=== PATIENT | female | born 1995 | race Caucasian/White ===

== ENCOUNTER → 2019-02-20 | Outpatient (CLI) | payer SELFPAY ==
--- NOTE | 2019-02-20 14:34 | RADIOLOGY REPORT (SQ) ---
EXAM DESCRIPTION: U/S [id number] TRNABD 1GES W/ODOP COMPLETED DATE/TIME: 02/20/2019 2:16 pm REASON FOR STUDY: Z34.81 ENCOUNTER FOR SUPRVSN OF NORMAL , FIRST TRIMESTER Z34.81 ENCOUNTE R FOR SUPRVSN OF NORMAL , FIRST TRIM COMPARISON: None. TECHNIQUE: Transabdominal static and realtime grayscale images acquired of the pelvis. Additional se lected spectral and color Doppler images recorded. All images stored on PACs. bHCG: Not available. CLINICAL DATES: RUDI: 09/18/2019. EGA: 10 weeks 0 days LIMITATIONS: None. FINDINGS: FETUS: Single Living intrauterine . ULTRASOUND EGA: 11 weeks 6 days ULTRASOUND RUDI: 09/05/2019 EFW: Not applicable less than 20 weeks. CRL: 5.09 cm FHR: 163 beats per minute. SURVEY: No visualized anomalies. AMNIOTIC FLUID: Adequate amount. PLACENTA: Not yet developed due to early gestation. SUBCHORIONIC BLEED: A 2.0 x 1.5 x 1.2 cm hypoechoic area superior(fundal) to the gestational sac may represent a small subchorionic bleed. SIZE OF BLEED: See above. UTERUS: The uterus measures 13.2 x 8.9 x 8.3 cm. No masses. No anomalies. CERVICAL LENGTH: 2.5 cm Closed. RIGHT ADNEXA: Not visualized. LEFT ADNEXA: The left ovary measures 2.9 x 2.0 x 1.6 cm. A 1.8 x 1.5 x 1.5 cm cyst, may represent a corpus luteum cyst. Normal vascular flow. No adnexal free fluid. FREE FLUID: None. OTHER: No other significant finding. IMPRESSION: LIVING INTRAUTERINE . EGA: 11weeks 6 days Small subchorionic bleed suggested. Trimester of : First - 0 to 13 weeks. TECHNICAL DOCUMENTATION: JOB ID: [id number] [employer]- All Rights Reserved rev Reading location - IP/workstation name: [email or web address]
== END ==
LOC: RAD 13:43
PROVIDERS: ATTEND Midwife
DX: O34.81 Maternal care for other abnormalities of pelvic organs, first trimester (principal); N83.202 Unspecified ovarian cyst, left side; Z3A.11 11 weeks gestation of pregnancy
CPT/HCPCS: 76801